=== PATIENT | female | born 1945 | race Caucasian/White ===

== ENCOUNTER 2018-04-03 16:29 | Emergency (ER) | payer MEDICARE, OTHER ==
[2018-04-03] MEDS ORDERED: Sodium Chloride 0.9% 10 ML Syringe FLUSH PRN (17:19)
--- NOTE | 2018-04-03 17:22 | EDM.PDOC ---
ED HPI GENERAL MEDICAL PROBLEM - General Chief Complaint: Respiratory Problem Stated Complaint: TROUBLE BREATHING Time Seen by Provider: 04/03/18 17:10 Source of Information: Reports: Patient, RN, RN Notes Reviewed History Limitations: Reports: No Limitations - History of Present Illness INITIAL COMMENTS - FREE TEXT/NARRATIVE: Yahaira Austin is a 72 yo female patient who presents to our ED today with worsening shortness of breath that started Fahad night. She reports a history of diabetic neuropathy, type 2 diabetes mellitus, diverticulosis, heart murmur, hernia, ulcers, enlarged liver, COPD, hypertension, enlarged bladder. She follows a urologist at [facility] in [place] and her PCP is Dr. Regan. She reports worsening pedal edema and orthopnea. Denies any cough or fever however she has had chills. Denies any sick contacts. She has had the flu shot. She denies any chest pain. She reports she recently ran out of a depression medication but has been taking all her other medications as prescribed. She is not a smoker. Onset Date: 04/01/18 Duration: Getting Worse - Related Data Allergies Allergy/AdvReac Type Severity Reaction Status Date / Time ibuprofen Allergy Other Verified 05/09/17 07:42 quinine Allergy Other Verified 05/09/17 07:42 Home Meds: Home Meds Doxycycline [Vibramycin] 100 mg PO BID #13 cap 04/03/18 [Rx] Lisinopril/Hydrochlorothiazide [Lisinopril-Hctz 20-12.5 mg Tab] 1 tab PO DAILY 04/03/18 [History] Rosuvastatin [Crestor] 20 mg PO DAILY 04/03/18 [History] Venlafaxine [Effexor XR] 150 mg PO DAILY 04/03/18 [History] metFORMIN [Glucophage] 1,000 mg PO BID 04/03/18 [History] Past Medical History Respiratory History: Reports: COPD, Sleep Apnea, Other (See Below) Other Respiratory History: lung issues Gastrointestinal History: Reports: Diverticulosis, Other (See Below) Other Gastrointestinal History: hernia in colon;enlarged liver Genitourinary History: Reports: Other (See Below) Other Genitourinary History: enlarged bladder TREATER History: Reports: Other (See Below) Other TREATER History: benign brrreast lump Psychiatric History: Reports: Anxiety Endocrine/Metabolic History: Reports: Diabetes, Type II - Past Surgical History Cardiovascular Surgical History: Reports: Other (See Below) Other Cardiovascular Surgeries/Procedures: enlarged heart GI Surgical History: Reports: Colonoscopy Musculoskeletal Surgical History: Reports: Knee Replacement Other Musculoskeletal Surgeries/Procedures:: right knee Social & Family History - Tobacco Use Smoking Status *Q: Never Smoker Second Hand Smoke Exposure: Yes - Caffeine Use Caffeine Use: Reports: Coffee, Tea - Recreational Drug Use Recreational Drug Use: No ED ROS GENERAL - Review of Systems Review Of Systems: See Below Constitutional: Reports: Chills. Denies: Fever, Malaise, Weakness, Fatigue HEENT: Denies: Nose Pain, Rhinitis, Throat Pain Respiratory: Reports: Shortness of Breath. Denies: Wheezing, Pleuritic Chest Pain, Cough, Sputum Cardiovascular: Reports: Blood Pressure Problem (Chronic ), Dyspnea on Exertion , Edema, Orthopnea, Palpitations (occasional). Denies: Chest Pain Endocrine: Reports: No Symptoms GI/Abdominal: Reports: No Symptoms. Denies: Abdominal Pain, Constipation, Diarrhea, Nausea, Vomiting : Reports: No Symptoms Musculoskeletal: Reports: No Symptoms Skin: Reports: No Symptoms. Denies: Cyanosis Neurological: Reports: No Symptoms ED EXAM, GENERAL - Physical Exam Exam: See Below Exam Limited By: No Limitations General Appearance: Alert, WD/WN, No Apparent Distress Eye Exam: Right Eye: EOMI (No LL gaze on exam s/s cataract ), Bilateral Eye: PERRL Ears: Normal External Exam, Normal Canal, Hearing Grossly Normal, Normal TMs Nose: Normal Inspection, Normal Mucosa, No Blood Throat/Mouth: Normal Inspection, Normal Lips, Normal Oropharynx, Normal Voice, No Airway Compromise Head: Atraumatic, Normocephalic Neck: Normal Inspection, Supple Respiratory/Chest: No Respiratory Distress, Lungs Clear, No Accessory Muscle Use , Chest Non-Tender, Decreased Breath Sounds. No: Rhonchi, Wheezing, Retractions Cardiovascular: Normal Peripheral Pulses, Regular Rate, Rhythm, No JVD, No Rub Peripheral Pulses: 2+: Radial (L), Radial (R), Dorsalis Pedis (L), Dorsalis Pedis (R) GI/Abdominal: Normal Bowel Sounds, Soft, Non-Tender, No Organomegaly, No Distention, No Abnormal Bruit, No Mass Extremities: Normal Inspection, Normal Range of Motion, Non-Tender, Normal Capillary Refill, Pedal Edema (1+) EKG INTERPRETATION EKG Date: 04/03/18 Time: 16:58 Rhythm: NSR [place]: Normal P-Wave: Present QRS: Normal ST-T: Normal QT: Normal Comparison: NA - No Prior EKG EKG Interpretation Comments: Sinus rhythm Course - Vital Signs Last Recorded V/S: Last Vital Signs Temp 96.9 F 04/03/18 16:38 Pulse 93 04/03/18 16:38 Resp 15 04/03/18 16:38 BP 160/76 H 04/03/18 16:38 Pulse Ox 98 04/03/18 16:38 - Orders/Labs/Meds Orders: Active Orders 24 hr Category Date Time Status EKG Documentation Completion [RC] STAT Care 04/03/18 17:21 Active Peripheral IV Care [RC] . DIRECTED Care 04/03/18 17:19 Active CXR [Chest 2V] [CR] Routine Exams 04/03/18 17:17 Taken Doxycycline [Vibramycin] Med 04/03/18 20:30 Once 100 mg PO ONETIME ONE Sodium Chloride 0.9% [Normal Saline] 1,000 ml Med 04/03/18 18:30 Active IV ASDIRECTED Sodium Chloride 0.9% [Normal Saline] 100 ml Med 04/03/18 19:00 Active IV ASDIRECTED Sodium Chloride 0.9% [Normal Saline] 250 ml Med 04/03/18 19:15 Active IV ASDIRECTED Sodium Chloride 0.9% [Saline Flush] Med 04/03/18 17:19 Active 10 ml FLUSH ASDIRECTED PRN Peripheral IV Insertion Adult [OM.PC] Routine Oth 04/03/18 17:19 Ordered Medication Orders Doxycycline Hyclate (Vibramycin) 100 mg PO ONETIME ONE Stop: 04/03/18 20:31 Sodium Chloride (Normal Saline) 1,000 mls @ 150 mls/hr IV ASDIRECTED JEREMIAH Last Admin: 04/03/18 18:38 Dose: 150 mls/hr Sodium Chloride (Normal Saline) 100 mls @ 4 mls/sec IV ASDIRECTED JEREMIAH Sodium Chloride (Normal Saline) 250 mls @ 75 mls/hr IV ASDIRECTED JEREMIAH Last Admin: 04/03/18 19:24 Dose: 75 mls/hr Sodium Chloride (Saline Flush) 10 ml FLUSH ASDIRECTED PRN PRN Reason: Keep Vein Open Last Admin: 04/03/18 17:42 Dose: 10 ml Labs: Laboratory Tests 04/03/18 04/03/18 04/03/18 Range/Units 17:30 17:30 17:30 WBC 7.06 (3.98-10.04) K/mm3 RBC 4.34 (3.98-5.22) M/mm3 Hgb 12.9 (11.2-15.7) gm/L Hct 38.7 (34.1-44.9) % MCV 89.2 (79.4-94.8) fl MCH 29.7 (25.6-32.2) pg MCHC 33.3 (32.2-35.5) g/dl RDW Std Deviation 43.4 (36.4-46.3) fL Plt Count 240 (182-369) K/mm3 MPV 9.5 (9.4-12.3) fl Neut % (Auto) 56.2 (34.0-71.1) % Lymph % (Auto) 32.7 (19.3-51.7) % [place] % (Auto) 8.6 (4.7-12.5) % Eos % (Auto) 1.8 (0.7-5.8) Baso % (Auto) 0.6 (0.1-1.2) % Neut # (Auto) 3.96 (1.56-6.13) K/mm3 Lymph # (Auto) 2.31 (1.18-3.74) K/mm3 [place] # (Auto) 0.61 H (0.24-0.36) K/mm3 Eos # (Auto) 0.13 (0.04-0.36) K/mm3 Baso # (Auto) 0.04 (0.01-0.08) K/mm3 D-Dimer, Quantitative (0.19-0.50) mg/L Sodium 140 (136-145) mEq/L Potassium 3.8 (3.5-5.1) mEq/L Chloride 103 (98-107) mEq/L Carbon Dioxide 26 (21-32) mEq/L Anion Gap 14.8 (5-15) BUN 12 (7-18) mg/dL Creatinine 1.0 (0.55-1.02) mg/dL Est Cr Clr Drug Dosing 40.22 mL/min Estimated GFR (MDRD) 55 (>60) mL/min BUN/Creatinine Ratio 12.0 L (14-18) Glucose 155 H (83-115) mg/dL Calcium 9.7 (8.5-10.1) mg/dL Total Bilirubin 0.2 (0.2-1.0) mg/dL AST 17 (15-37) U/L ALT 23 (14-59) U/L Alkaline Phosphatase 63 (46-116) U/L Troponin I < 0.017 (0.00-0.056) ng/mL NT-Pro-B Natriuret Pep 159 H (0-125) pg/mL Total Protein 7.7 (6.4-8.2) g/dl Albumin 3.9 (3.4-5.0) g/dl Globulin 3.8 gm/dL Albumin/Globulin Ratio 1.0 (1-2) Mycoplasma pneumon IgM Positive H (NEGATIVE) 04/03/18 Range/Units 17:30 WBC (3.98-10.04) K/mm3 RBC (3.98-5.22) M/mm3 Hgb (11.2-15.7) gm/L Hct (34.1-44.9) % MCV (79.4-94.8) fl MCH (25.6-32.2) pg MCHC (32.2-35.5) g/dl RDW Std Deviation (36.4-46.3) fL Plt Count (182-369) K/mm3 MPV (9.4-12.3) fl Neut % (Auto) (34.0-71.1) % Lymph % (Auto) (19.3-51.7) % [place] % (Auto) (4.7-12.5) % Eos % (Auto) (0.7-5.8) Baso % (Auto) (0.1-1.2) % Neut # (Auto) (1.56-6.13) K/mm3 Lymph # (Auto) (1.18-3.74) K/mm3 [place] # (Auto) (0.24-0.36) K/mm3 Eos # (Auto) (0.04-0.36) K/mm3 Baso # (Auto) (0.01-0.08) K/mm3 D-Dimer, Quantitative 1.01 H (0.19-0.50) mg/L Sodium (136-145) mEq/L Potassium (3.5-5.1) mEq/L Chloride (98-107) mEq/L Carbon Dioxide (21-32) mEq/L Anion Gap (5-15) BUN (7-18) mg/dL Creatinine (0.55-1.02) mg/dL Est Cr Clr Drug Dosing mL/min Estimated GFR (MDRD) (>60) mL/min BUN/Creatinine Ratio (14-18) Glucose (83-115) mg/dL Calcium (8.5-10.1) mg/dL Total Bilirubin (0.2-1.0) mg/dL AST (15-37) U/L ALT (14-59) U/L Alkaline Phosphatase (46-116) U/L Troponin I (0.00-0.056) ng/mL NT-Pro-B Natriuret Pep (0-125) pg/mL Total Protein (6.4-8.2) g/dl Albumin (3.4-5.0) g/dl Globulin gm/dL Albumin/Globulin Ratio (1-2) Mycoplasma pneumon IgM (NEGATIVE) Meds: Medications Generic Name Dose Route Start Last Admin Trade Name Freq PRN Reason Stop Dose Admin Doxycycline Hyclate 100 mg 04/03/18 20:30 Vibramycin PO 04/03/18 20:31 ONETIME ONE Sodium Chloride 1,000 mls @ 150 mls/hr 04/03/18 18:30 04/03/18 18:38 Normal Saline IV 150 mls/hr ASDIRECTED JEREMIAH Administration Sodium Chloride 100 mls @ 4 mls/sec 04/03/18 19:00 Normal Saline IV ASDIRECTED JEREMIAH Sodium Chloride 250 mls @ 75 mls/hr 04/03/18 19:15 04/03/18 19:24 Normal Saline IV 75 mls/hr ASDIRECTED JEREMIAH Administration Sodium Chloride 10 ml 04/03/18 17:19 04/03/18 17:42 Saline Flush FLUSH 10 ml ASDIRECTED PRN Administration Keep Vein Open Discontinued Medications Generic Name Dose Route Start Last Admin Trade Name Freq PRN Reason Stop Dose Admin Iopamidol 100 ml 04/03/18 18:59 04/03/18 19:24 [id number] (76%) IVPUSH 04/03/18 19:00 100 ml ONETIME ONE Administration Iopamidol 40 ml 04/03/18 18:59 Isovue-370 (76%) IVPUSH 04/03/18 19:00 ONETIME ONE Iopamidol 100 ml 04/03/18 19:09 Isovue-370 (76%) IVPUSH 04/03/18 19:10 ONETIME ONE - Re-Assessments/Exams Free Text/Narrative Re-Assessment/Exam: Patient reports shortness of breath and is noted to not tachypneic. She also has oxygen saturations in the very high 90s. We'll order CBC, CMP, troponin, d- dimer, and two-view chest x-ray. We'll also order influenza and mycoplasma pneumonia. 04/03/18 17:27 Two-view chest x-ray obtained and reviewed by Dr. Muniz and myself. Borderline crit megaly noted. Patient has kyphosis. Cervical spine hardware in C5-7 is noted anteriorly. Right hemidiaphragm is noted to be elevated and lobulated pattern. Calcification noted in disk space in thoracic spine. Nothing acute is appreciated. 04/03/18 18:01 Labs have returned. WBC is normal at 7.06. CBC is otherwise grossly unremarkable. Electrolytes and liver enzymes looked good. Troponin is negative at less than 0.017. BNP is 159. Glucose is high at 155. Creatinine is 1.0. GFR 55. D-dimer is elevated at 1.01. Discussed this with Dr. Muniz. We'll go ahead and order CT angiogram with patient's approval. PERC Rule shows PE cannot be ruled out because patient has greater than 50 years old. We' ll order 150 mils per hour of NS starting now to guard the kidneys. Still awaiting mycoplasma. 04/03/18 18:24 CTA of chest results back and negative for PE. Nothing acute is appreciated. Mycoplasma PNA has returned positive. This would certainly explain her feeling of shortness of breath. Her oxygen saturations have been good and she has not been tachypneic. 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 04/03/18 20:30 Departure - Departure Time of Disposition: 20:32 Disposition: Home, Self-Care 01 Condition: Good Clinical Impression: Mycoplasma infection - Discharge Information *PRESCRIPTION DRUG MONITORING PROGRAM REVIEWED*: No *COPY OF PRESCRIPTION DRUG MONITORING REPORT IN PATIENT MACHELLE: No Prescriptions: Doxycycline [Vibramycin] 100 mg PO BID #13 cap Referrals: Pedro Regan MD [Primary Care Provider] - Forms: ED Department Discharge Additional Instructions: Your evaluates today in our emergency department for shortness of breath. Chest x-ray not show pneumonia and your labs look good. CT scan of her chest was obtained looking for blood clots and this was negative. This is a good thing. You were noted to be positive for mycoplasma PNA. This is a specific type of infection and can certainly explain your shortness of breath. You were given one dose of antibiotic while here and will be prescribed a total of 7 days worse of antibiotic. You can pick this up at your pharmacy tomorrow. She' ll your rest for a status decline and you feel worsening shortness of breath please return to the ER or contact your primary care provider. - My Orders Last 24 Hours: My Active Orders 04/03/18 17:17 CXR [Chest 2V] [CR] Routine 04/03/18 17:19 Peripheral IV Care [RC] . DIRECTED Sodium Chloride 0.9% [Saline Flush] 10 ml FLUSH ASDIRECTED PRN Peripheral IV Insertion Adult [OM.PC] Routine 04/03/18 17:21 EKG Documentation Completion [RC] STAT 04/03/18 18:30 Sodium Chloride 0.9% [Normal Saline] 1,000 ml IV ASDIRECTED 04/03/18 19:00 Sodium Chloride 0.9% [Normal Saline] 100 ml IV ASDIRECTED 04/03/18 19:15 Sodium Chloride 0.9% [Normal Saline] 250 ml IV ASDIRECTED 04/03/18 20:30 Doxycycline [Vibramycin] 100 mg PO ONETIME ONE - Assessment/Plan Last 24 Hours: My Active Orders 04/03/18 17:17 CXR [Chest 2V] [CR] Routine 04/03/18 17:19 Peripheral IV Care [RC] . DIRECTED Sodium Chloride 0.9% [Saline Flush] 10 ml FLUSH ASDIRECTED PRN Peripheral IV Insertion Adult [OM.PC] Routine 04/03/18 17:21 EKG Documentation Completion [RC] STAT 04/03/18 18:30 Sodium Chloride 0.9% [Normal Saline] 1,000 ml IV ASDIRECTED 04/03/18 19:00 Sodium Chloride 0.9% [Normal Saline] 100 ml IV ASDIRECTED 04/03/18 19:15 Sodium Chloride 0.9% [Normal Saline] 250 ml IV ASDIRECTED 04/03/18 20:30 Doxycycline [Vibramycin] 100 mg PO ONETIME ONE
[2018-04-03] MEDS ORDERED: Sodium Chloride 0.9% 1,000 ML IV SCH (18:30)
[2018-04-03] MEDS ORDERED: Iopamidol 755 MG/ML 50 ML Bottle IVPUSH ONE (18:59)
[2018-04-03] MEDS ORDERED: Iopamidol 755 Mg/ML 100 ML Bottle IVPUSH ONE ×2 (18:59→19:09)
[2018-04-03] MEDS ORDERED: Sodium Chloride 0.9% 100 ML IV SCH (19:00)
[2018-04-03] MEDS ORDERED: Sodium Chloride 0.9% 250 ML IV SCH (19:15)
--- NOTE | 2018-04-03 19:47 | CT ---
CT chest Technique: Multiple axial sections through the chest were obtained. Study has been performed as a pulmonary angiogram protocol. Comparison: No prior chest CT is available. Findings: Pulmonary arteries are well-opacified. No filling defects are seen to indicate pulmonary embolism. Mediastinum and hilar regions show no adenopathy or mass. Coronary artery calcification is seen. No pericardial thickening is seen. Small portion of the visualized upper abdominal structures appear within normal limits. Lungs are clear with no acute parenchymal change. No pleural effusions are seen. No pneumothorax is seen. Bone window settings were reviewed which shows diffuse degenerative change throughout the spine. No acute osseous abnormality is appreciated. Impression: 1. No findings of pulmonary embolism. Nothing acute is appreciated on CT study of the chest performed as a pulmonary angiogram protocol. 2. Other incidental findings as noted above. Diagnostic code #2
[2018-04-03] MEDS ORDERED: Doxycycline 100 MG Cap PO ONE (20:30)
--- NOTE | 2018-04-04 07:58 | CR ---
Chest: Two views of the chest were obtained. Comparison: Prior chest x-ray of 06/10/10. Heart size mildly prominent. Upper mediastinum is normal. Previous lower cervical spine surgery is noted. Diffuse disc space narrowing and osteophytes are seen within the spine. Lungs are clear and no acute parenchymal change. Impression: 1. Incidental findings. Nothing acute is appreciated on two-view chest x-ray. Diagnostic code #2
== END 2018-04-03 20:50 | disposition home or self-care (01) ==
LOC: JD.ED 16:29 → SUPCPDRO 16:29 → JD.ED 20:50
DX: R06.02 Shortness of breath (principal); B96.0 Mycoplasma pneumoniae [M. pneumoniae] as the cause of diseases classified elsewhere; F41.9 Anxiety disorder, unspecified; E11.40 Type 2 diabetes mellitus with diabetic neuropathy, unspecified; J44.9 Chronic obstructive pulmonary disease, unspecified; I10 Essential (primary) hypertension; Z79.899 Other long term (current) drug therapy; Z79.84 Long term (current) use of oral hypoglycemic drugs; Z77.22 Contact with and (suspected) exposure to environmental tobacco smoke (acute) (chronic)
CPT/HCPCS: 36415; 71046; 71275; 80053; 83880; 84484; 85025; 85379; 86738; 87804; 93005; 96360; 96361; 99285; A9270; J7040; J7050; Q9967; 93010; 99284

== ENCOUNTER 2021-08-07 17:49 | Emergency (ER) | payer MEDICARE, OTHER ==
[2021-08-07] MEDS ORDERED: Metoclopramide 10 MG/2 ML SDV IVPUSH ONE (18:11)
[2021-08-07] MEDS ORDERED: diphenhydrAMINE 50 MG/ML SDV IVPUSH ONE (18:11)
[2021-08-07] MEDS ORDERED: Morphine 4 MG/ML VIAL IVPUSH ONE (18:11)
[2021-08-07] MEDS ORDERED: Sodium Chloride 0.9% 1,000 ML IV SCH (18:15)
[2021-08-07] MEDS ORDERED: Morphine 4 MG/ML Syringe IVPUSH ONE (18:22)
[2021-08-07 19:16] LABS: HEMOGLOBIN A1C 6.6 %
[2021-08-07 20:06] LABS: CORONAVIRUS COVID-19 NAA NEGATIVE (NEGATIVE)
[2021-08-07] MEDS ORDERED: HYDROmorphone 0.5 MG/0.5 ML Syringe IVPUSH ONE (21:01)
[2021-08-07] MEDS ORDERED: LORazepam 2 MG/ML SDV IVPUSH ONE (21:19)
[2021-08-08] MEDS ORDERED: Insulin Glargine,Human Rec. Analog 100 Units/ML 3 ML Pen SUBCUT SCH (21:00)
== END 2021-08-07 22:00 ==
LOC: JD.ED 17:49
DX: S72.141A Displaced intertrochanteric fracture of right femur, initial encounter for closed fracture (principal); J44.9 Chronic obstructive pulmonary disease, unspecified; E11.9 Type 2 diabetes mellitus without complications; I10 Essential (primary) hypertension; Z79.84 Long term (current) use of oral hypoglycemic drugs; Z88.8 Allergy status to other drugs, medicaments and biological substances; Z79.899 Other long term (current) drug therapy; Z20.822 Contact with and (suspected) exposure to COVID-19; W18.30XA Fall on same level, unspecified, initial encounter
CPT/HCPCS: 0240U; 36415; 71045; 72170; 73552; 80053; 82550; 83036; 83735; 83880; 85025; 85610; 85730; 86140; 86850; 86900; 86901; 93005; 96361; 96374; 96375; 99285; J1200; J2060; J2270; J2765; J7030; 93010; 99284